=== PATIENT | male | born 1950 | race Caucasian/White ===

== ENCOUNTER → 2017-01-26 | Outpatient (CLI) | payer OTHER ==
[~2017-01-26] VITALS: Ht 182.9 cm; Wt 72.6 kg
[~2017-01-26] MED LIST: VITAMIN D-32000 UNIT PO
--- NOTE | ~2017-01-26 | S ---
[facility] [place] [address] SURGICAL PATH RPT PROCEDURE Name: ALEXIA JIANG Room #: [facility].#: [id number] Admission: 01/26/17 Date of : 46 Discharge: Report #: [id number] Path Case #: [id number] PATHOLOGY REPORT COLLECTION DATE: 01/26/2017 RECEIVED DATE: 01/26/2017 SUBMITTING PHYS: Dr. Carlos Wright OTHER PHYS: Dr. Craig Christian SPECIMEN(S) RECEIVED: A.Bx of gastritis B.Bx of esophagitis C.Polyp at rectum * * * * * * * * * * * * FINAL DIAGNOSIS: A. Gastric mucosa, gastritis, endoscopic biopsy: - Mild reactive gastropathy. - Negative for intestinal metaplasia or atrophy. - Negative for Helicobacter pylori. B. Squamous mucosa, esophagitis, endoscopic biopsy: - Mild active esophagitis with few eosinophils (2-3/hpf) as well as findings compatible with reflux esophagitis. - Negative for intestinal metaplasia or dysplasia. C. Polyp, at rectum, endoscopic biopsy: - Tubular adenoma. - Negative for high-grade dysplasia. (IUV:rikki;01/29/2017) COMMENT: Helicobacter pylori immunohistochemical stain performed on block A - Negative. PATHOLOGIST: Mary Lou Stark M.D. REPORT ELECTRONICALLY SIGNED BY: Mary Lou Stark M.D. DATE/TIME: 01/29/2017 15:07 * * * * * * * * * * * * GROSS PATHOLOGY: A. Received in formalin labeled "Alexia Jiagn, biopsy of gastritis," are multiple segments of reyes soft tissue measuring 0.5 cm in aggregate dimensions and ranging from 0.1 to 0.2 cm in maximum dimension. The specimen is submitted entirely in cassette A1. B. Received in formalin labeled "Alexia Jiang, biopsy of esophagitis," are multiple segments of reyes soft tissue measuring 0.4 cm in aggregate dimensions and ranging from 0.1 to 0.2 cm in maximum [address] [address] SURGICAL PATH RPT PROCEDURE Name: ALEXIA JIANG S Room #: [facility].#: [id number] Admission: 01/26/17 Date of : 46 Discharge: Report #: [id number] Path Case #: [id number] dimension. The specimen is submitted entirely in cassette B1. C. Received in formalin labeled "Alexia Jiang, polyp at rectum," are 2 segments of reyes soft tissue measuring 0.3 cm in aggregate dimensions and ranging from 0.1 to 0.2 cm in maximum dimension. The specimen is submitted entirely in cassette C1. (SNA; 01/26/2017) CLINICAL HISTORY: History of polyps, dysphasia, gastritis INITIAL CPT CODE(S): A; 68934, 02752 B; 59017 C; 74215 Professional services performed by [facility] at [address] , [place] [address] Technical services performed by [facility] at [address] [place] [address]., [address], [place] [address]. [facility] [address] [place] [address] PHONE: [phone] DIRECTOR: Felix Hasnen M.D. * * * END OF REPORT * * *
== END | disposition home or self-care (01) ==
LOC: GI 07:04
DX: Z09 Encounter for follow-up examination after completed treatment for conditions other than malignant neoplasm (principal); D12.8 Benign neoplasm of rectum; K31.9 Disease of stomach and duodenum, unspecified; K57.30 Diverticulosis of large intestine without perforation or abscess without bleeding; K21.0 Gastro-esophageal reflux disease with esophagitis; K44.9 Diaphragmatic hernia without obstruction or gangrene; Z98.890 Other specified postprocedural states
CPT/HCPCS: 62110; 62900

== ENCOUNTER 2019-10-01 21:35 | Emergency (ER) | payer OTHER ==
[~2019-10-01] VITALS: Ht 180.3 cm; Wt 72.6 kg
[2019-10-01 22:02] LABS: ABSOLUTE NEUTROPHILS 5.4 thou/uL (1.4-8.2); BASOPHILS 0.8 % (0.0-2.0); EOSINOPHILS 3.8 % (0.0-3.0); HEMATOCRIT 42.1 % (42.0-52.0); HEMOGLOBIN 13.7 gm/dL (14.0-18.0); LYMPHOCYTES 9.8 % (24.0-44.0); MCH 27.8 pg (26.0-34.0); MCHC 32.7 g/dL (28.0-37.0); MCV 85.2 fL (80.0-100.0); MONOCYTES 6.9 % (1.0-8.0); PLATELET COUNT 216 thou/uL (150-400); POLYS 78.7 % (36.0-66.0); RBC 4.94 mil/uL (4.50-6.00); RDW 16.5 % (10.5-14.5); WBC 6.9 thou/uL (4.0-11.0)
[2019-10-01 22:09] LABS: CALCIUM 8.6 mg/dL (8.5-10.1); CREATININE 1.1 mg/dL (0.7-1.3); POTASSIUM 4.9 mmol/L (3.5-5.1)
[2019-10-02 01:00] VITALS: BP 124/68
--- NOTE | 2019-10-06 10:09 | PATH ---
[facility] [address] [place] [address] PATHOLOGY RPT PROCEDURE Name: ALEXIA JIANG Room #: DEP [facility].#: [id number] Admission: 10/01/19 Date of : 46 Discharge: 10/02/19 Report #: [id number] Path Case #: [id number] [facility] Accession Number: [id number] . 01 Material submitted: . stomach - BIOPSY OF GASTRITIS R/O H. PYLORI . 01 Clinical history: . Dysphagia. . 02 Diagnosis: Gastric mucosa, gastritis rule out H. pylori, endoscopic biopsy: - Moderate reactive gastropathy. - Negative for intestinal metaplasia or atrophy. - Negative for Helicobacter pylori (properly controlled immunohistochemical stain performed). (IUV:chemistry technologist; 10/03/2019) MBR 10/03/2019 1232 Local . 02 Electronically signed: . Mary Lou Stark MD, Pathologist NPI- [id number] . 01 Gross description: . Received in formalin labeled "Alexia Jiang, BX of gastritis rule out H. pylori" is a 0.5 x 0.3 x 0.1 cm aggregate of reyes-brown soft tissue fragments. The specimen is submitted entirely in A1. ([facility] [place]; 10/02/2019) [facility] 10/02/2019 1811 Local . 02 Pathologist provided ICD-10: K31.9, R13.10 . 02 CPT . 377619, N99287 Specimen Comment: A courtesy copy of this report has been sent to [phone] Specimen Comment: [phone], Specimen Comment: Report sent to REGULO Andrade / DR ADHIKARI Performed at: [address], [place] [id number] MD Deo Swanson MD Phone: [phone] Performed at: [address] [id number] MD Mary Lou Stark MD Phone: [phone]
== END 2019-10-02 01:05 | disposition home or self-care (01) ==
LOC: ER 21:35
PROVIDERS: Nurse Practitioner
DX: T18.198A Other foreign object in esophagus causing other injury, initial encounter (principal); R13.10 Dysphagia, unspecified; Z79.899 Other long term (current) drug therapy; Y92.89 Other specified places as the place of occurrence of the external cause

== ENCOUNTER 2021-05-30 21:35 | Emergency (ER) | payer OTHER ==
[~2021-05-30] VITALS: Ht 180.3 cm; Wt 72.6 kg
[2021-05-31] MEDS ORDERED: OMEPRAZOLE40 MG PO (01:12)
[2021-05-31 01:25] VITALS: BP 150/70
--- NOTE | 2021-06-01 15:08 | PATH ---
[facility] [address] [place] [address] PATHOLOGY RPT PROCEDURE Name: ALEXIA JIANG [id number] Admission: 05/30/21 Date of : 46 Discharge: 05/31/21 Report #: [id number] Path Case #: [id number] [facility] Accession Number: [id number] . 01 Material submitted: . esophagus - MID ESOPHAGUS. Modifiers: mid . 01 Clinical history: . FOOD BOLUS IMPACITON . 02 Diagnosis: Mid esophagus, endoscopic biopsy: - Squamous mucosa with 3-5 eosinophils/HPF. - Negative for dysplasia or malignancy. (See comment) . (ANK:mmlucio; 06/01/2021) QLM 06/01/2021 1121 Local . 02 Comment: There are 3-5 eosinophils/HPF. Eosinophilic microabscesses are not identified. Differential includes reflux esophagitis versus eosinophilic esophagitis. Recommend clinical and endoscopic correlation. . (ANK:mml; 06/01/2021) . 02 Electronically signed: . Patria Haro MD, Pathologist NPI- [id number] . 01 Gross description: . The specimen is received in formalin, labeled "Alexia Jiang, mid esophagus". Received are multiple fragments of pale reyes tissue measuring 2.8 x 0.3 x 0.1 cm in aggregate dimensions. The specimen is filtered and entirely submitted in cassette A1. ([facility]; 05/31/2021) NRI/NRI 05/31/2021 1551 Local . 02 Pathologist provided ICD-10: R13.10 . 02 CPT . 374170 Specimen Comment: A courtesy copy of this report has been sent to [phone] Specimen Comment: Report sent to Performed at: [address] [address] PATHOLOGY RPT PROCEDURE Name: ALEXIA JIANG Room #: DEP [facility] Kay#: [id number] Admission: 05/30/21 Date of : 46 Discharge: 05/31/21 Report #: [id number] Path Case #: [id number] [address] [id number] MD Gume Mota MD Phone: [phone] Performed at: [address] [id number] MD Mary Lou Stark MD Phone: [phone]
== END 2021-05-31 04:39 | disposition home or self-care (01) ==
LOC: ER 21:35
DX: K22.2 Esophageal obstruction (principal); Z20.822 Contact with and (suspected) exposure to COVID-19; Z98.890 Other specified postprocedural states
CPT/HCPCS: 62110; 62900